=== PATIENT | male | born 1950 | race Caucasian/White ===

== ENCOUNTER 2022-08-08 14:40 | Emergency (ER) | payer OTHER ==
[~2022-08-08] VITALS: Wt 102.1 kg
[2022-08-08 15:38] LABS: HEMATOCRIT 40.9 % (42.0-52.0); MEAN CELL VOLUME 89.1 fl (80.0-94.0); MEAN CORPUSCULAR HGB 29.8 pg (27.0-31.0); MEAN CORPUSCULAR HGB CONC 33.5 g/dl (33.0-37.0); MEAN PLATELET VOLUME 10.9 fl (9.6-12.3); PLATELET COUNT AUTOMATED 127 10*3/uL (130-400); RED BLOOD COUNT 4.59 10*6/uL (4.50-5.90); RED CELL DISTRI WIDTH 13.8 % (0-14.5); WHITE BLOOD COUNT 5.6 10*3/uL (4.8-10.8)
[2022-08-08 15:40] LABS: MANUAL DIFF REFLEX YES
[2022-08-08 15:58] LABS: TOTAL CELLS COUNTED 100 #CELLS
[2022-08-08 15:59] LABS: PLATELET SUFFICIENCY NORMAL (NORMAL)
[2022-08-08 16:13] LABS: ALKALINE PHOSPHATASE 71 U/L (46-116); BUN 18 mg/dl (9-23); CHLORIDE 109 mmol/L (98-107); POTASSIUM 4.1 mmol/L (3.4-5.1); SGPT/ALT 30 U/L (10-49); TOTAL PROTEIN 6.7 gm/dL (6.0-8.0)
[2022-08-08] MEDS ORDERED: XARE20MG PO (17:00)
== END 2022-08-08 18:04 | disposition home or self-care (01) ==
LOC: ED 14:40
PROVIDERS: Emergency Medicine
DX: I48.92 Unspecified atrial flutter (principal); I10 Essential (primary) hypertension